=== PATIENT | male | born 1970 | race Caucasian/White ===

== ENCOUNTER 2018-09-05 11:32 | Inpatient (IN) | payer MEDICARE, OTHER ==
[2018-09-05] VITALS (9 sets, daily range): BP systolic 126–162; BP diastolic 71–122
[~2018-09-05] VITALS: Ht 172.7 cm; Wt 153.5 kg
[~2018-09-05 11:32] MED LIST: AMLO10TA82 PO; CYCL10TA45 PO; HYDR1CAP2; LEVO750T6 PO; LISI1TAB PO; LOSA100T7 PO; METF500T8 PO; NAPR-243 PO; NFNEB10T PO; OXYC-272 PO
--- OUTSIDE RECORDS SUMMARY | 2018-09-05 11:37 | XMS REPORT | Continuity of Care Document ---
Author Author [facility] Organization [facility] Address Unknown Phone Unavailable Care Team Providers Care Literacy Education Professor Name Role Phone MI NARVAEZ DO PP Insurance Providers Payer Name Policy Number Subscriber Name Relationship [facility] [id number] Bhavin Boudreaux Self / Same As Patient Advance Directives Directive Response Recorded Date Advance Directives N 10/24/12 7:12pm Problems No Known Problems or Medical conditions. Family History History Response Recorded Date/Time Hx Family Cancer Y grandpa, throat 10/24/12 7:12pm Hx Family Breast Cancer N 10/24/12 7:12pm Hx Family Lung Cancer N 10/24/12 7:12pm Hx Family Colorectal Cancer N 10/24/12 7:12pm Hx Family Cardiac Disorders N 10/24/12 7:12pm Allergies, Adverse Reactions, Alerts Allergen Type Severity Reaction Last Updated No Known Drug Allergies 11/21/08 Medications Medication Dose Units Route Sig Qty Days Levofloxacin (Levaquin Po) 1 Each PO DAILY 7 Metformin HCl (Metformin Er 500MG) 500 Mg PO DAILY WITH FOOD Cyclobenzaprine Hcl (Flexeril Tablet) 10 Mg PO TID FOR SPASMS Naproxen (Naprosyn) 500 Mg PO BID Oxycodone Hcl/Acetaminophen (Percocet 10-325 Mg Tablet) 2 Tab PO TID Amlodipine Besylate 10 Mg PO DAILY Losartan Potassium 100 Mg PO DAILY HCTZ/Lisinopril (Lisinopril-Hctz 20-12.5 Mg Tab) 2 Tab PO DAILY Nebivolol Hcl (Bystolic) 10 Mg PO DAILY Acetaminophen/Hydrocodone Bitart (Lorcet Hd 7.5/500) Response Recorded Date/Time Status not known Unknown Results Test Date Result Interp. Ref. Range Acetaminophen Screen November 21, 2008 1:46am NEGATIVE - Activated Partial Thromboplast Time November 21, 2008 12:25am 26 SEC N 24-35 Alanine Aminotransferase (ALT/SGPT) November 21, 2008 12:25am 57 U/L N 30-65 Albumin November 21, 2008 12:25am 4.0 G/DL N 3.4-5.0 Alkaline Phosphatase November 21, 2008 12:25am 122 U/L N 50-136 Aspartate Amino Transf (AST/SGOT) November 21, 2008 12:25am 17 U/L N 15-37 BUN/Creatinine Ratio November 22, 2008 1:42pm 18 - Basophils # (Auto) November 21, 2008 12:25am 0.1 10^3/uL N 0.0-0.1 Basophils (%) (Auto) November 21, 2008 12:25am 1 % N 0-10 Blood Urea Nitrogen November 22, 2008 1:42pm 21 MG/DL H 7-18 Calcium Level November 22, 2008 1:42pm 9.5 MG/DL N 8.5-10.1 Carbon Dioxide Level November 22, 2008 1:42pm 24 MMOL/L N 21-32 Chloride Level November 22, 2008 1:42pm 101 MMOL/L N 101-110 Creatinine November 22, 2008 1:42pm 1.2 MG/DL N 0.6-1.3 Eosinophils # (Auto) November 21, 2008 12:25am 0.4 10^3/uL H 0.0-0.3 Eosinophils (%) (Auto) November 21, 2008 12:25am 5 % N 0-10 Erythrocyte Sedimentation Rate November 22, 2008 1:42pm 2 MM/HR N 0-15 Free Thyroxine November 22, 2008 1:42pm 0.71 NG/DL N 0.59-1.17 Glucose Level November 22, 2008 1:42pm 167 MG/DL H 70-126 Hematocrit November 21, 2008 12:25am 45 % N 40-54 Hemoglobin November 21, 2008 12:25am 15.5 G/DL N 13.3-17.7 Lymphocytes # (Auto) November 21, 2008 12:25am 2.2 X 10^3 N 1.0-4.0 Lymphocytes (%) (Auto) November 21, 2008 12:25am 29 % N 12-44 Mean Corpuscular Hemoglobin November 21, 2008 12:25am 31 PG N 25-34 Mean Corpuscular Hemoglobin Concent November 21, 2008 12:25am 35 G/DL N 32-36 Mean Corpuscular Volume November 21, 2008 12:25am 90 FL N 80-99 Mean Platelet Volume November 21, 2008 12:25am 10.7 FL H 7.4-10.4 Monocytes # (Auto) November 21, 2008 12:25am 0.6 X 10^3 N 0.0-1.0 Monocytes (%) (Auto) November 21, 2008 12:25am 7 % N 0-12 Neutrophils # (Auto) November 21, 2008 12:25am 4.4 X 10^3 N 1.8-7.8 Neutrophils (%) (Auto) November 21, 2008 12:25am 58 % N 42-75 Platelet Count November 21, 2008 12:25am 259 10^3/uL N 130-400 Potassium Level November 22, 2008 1:42pm 4.2 MMOL/L N 3.6-5.0 Prothromb Time International Ratio November 21, 2008 12:25am 0.9 N 0.8-1.4 Prothrombin Time November 21, 2008 12:25am 12.4 SEC N 12.2-14.7 Red Blood Count November 21, 2008 12:25am 4.96 10^6/uL N 4.35-5.85 Red Cell Distribution Width November 21, 2008 12:25am 12.6 % N 10.0-14.5 Sodium Level November 22, 2008 1:42pm 138 MMOL/L N 135-145 Thyroid Stimulating Hormone (TSH) November 22, 2008 1:42pm 0.86 UIU/ML N 0.34-5.60 Total Bilirubin November 21, 2008 12:25am 0.8 MG/DL N 0.0-1.0 Total Protein November 21, 2008 12:25am 7.5 G/DL N 6.4-8.2 Troponin I November 21, 2008 12:20pm < 0.10 MG/ML 0.00-0.10 Ur Tricyclic Antidepressants Screen November 21, 2008 1:46am NEGATIVE - Urine Amphetamines Screen November 21, 2008 1:46am NEGATIVE - Urine Bacteria November 21, 2008 1:46am NEGATIVE - Urine Barbiturates Screen November 21, 2008 1:46am NEGATIVE - Urine Benzodiazepines Screen November 21, 2008 1:46am NEGATIVE - Urine Bilirubin November 21, 2008 1:46am NEGATIVE - Urine Casts November 21, 2008 1:46am NONE - Urine Clarity November 21, 2008 1:46am CLEAR - Urine Cocaine Screen November 21, 2008 1:46am NEGATIVE - Urine Color November 21, 2008 1:46am YELLOW - Urine Crystals November 21, 2008 1:46am NONE - Urine Culture Indicated November 21, 2008 1:46am NO - Urine Glucose (UA) November 21, 2008 1:46am NEGATIVE - Urine Ketones November 21, 2008 1:46am NEGATIVE - Urine Leukocyte Esterase November 21, 2008 1:46am NEGATIVE - Urine Methamphetamines Screen November 21, 2008 1:46am NEGATIVE - Urine Mucus November 21, 2008 1:46am LARGE H - Urine Nitrite November 21, 2008 1:46am NEGATIVE - Urine Opiates Screen November 21, 2008 1:46am NEGATIVE - Urine Phencyclidine Screen November 21, 2008 1:46am NEGATIVE - Urine Protein November 21, 2008 1:46am NEGATIVE - Urine RBC November 21, 2008 1:46am NONE /HPF - Urine Specific [place] November 21, 2008 1:46am 1.030 H - Urine Squamous Epithelial Cells November 21, 2008 1:46am RARE - Urine Urobilinogen November 21, 2008 1:46am NORMAL MG/DL - Urine WBC November 21, 2008 1:46am 0-2 /HPF - Urine pH November 21, 2008 1:46am 5.0 - White Blood Count November 21, 2008 12:25am 7.7 10^3/uL N 4.3-11.0 Estimat Glomerular Filtration Rate November 21, 2008 12:25am > 60 - Urine Methadone Screen November 21, 2008 1:46am NEGATIVE - Creatine Kinase November 21, 2008 12:20pm 44 mg/dl N 21-170 Urine Cannabinoids Screen November 21, 2008 1:46am NEGATIVE - Cardiac Panel Pathologist Review November 21, 2008 12:25am SEE CARDIAC PATH REV - Urine RBC (Auto) November 21, 2008 1:46am NEGATIVE - Encounters Encounter Location Date/Time Discharged Inpatient [facility] 10/24/12 5:42pm
--- OUTSIDE RECORDS SUMMARY | 2018-09-05 11:37 | XMS REPORT ---
Author Author CALEB WOLF Organization [facility] Address [address] [place] [address] Care Team Providers Care State Auditor Name Role Phone CALEB WOLF Unavailable PROBLEMS Type Condition ICD9-CM Code [id number] Code Onset Dates Condition Status SNOMED Code Problem Primary hypertension I10 Active [id number] ALLERGIES No Information ENCOUNTERS Encounter Location Date Diagnosis [facility] [id number], [place] [address] Jan, [facility] [id number], [place] [address] Oct, Primary hypertension I10 ; Right hip pain M25.551 and BMI 50.0-59.9, adult Z68.43 IMMUNIZATIONS No Known Immunizations SOCIAL HISTORY Never Assessed REASON FOR VISIT Blood Pressure-SHIRLEY milian PLAN OF CARE VITAL SIGNS Height 68 in 2018-01-27 Weight 327.0 lbs 2018-01-27 BMI 49.71 kg/m2 2018-01-27 Blood pressure systolic 200 mmHg 2018-01-27 Blood pressure diastolic 130 mmHg 2018-01-27 MEDICATIONS Unknown Medications RESULTS No Results PROCEDURES No Known procedures INSTRUCTIONS MEDICATIONS ADMINISTERED No Known Medications MEDICAL (GENERAL) HISTORY Type Description Date Surgical History 2 microdiscectomy - [place] Hospitalization History [facility] - Mini stroke 2009
--- OUTSIDE RECORDS SUMMARY | 2018-09-05 11:37 | XMS REPORT ---
Author Author CALEB WOLF Organization [facility] Address [address] [place] [address] Care Team Providers Care Rate And Cost Analyst Name Role Phone CALEB WOLF Unavailable PROBLEMS Type Condition ICD9-CM Code [id number] Code Onset Dates Condition Status SNOMED Code Problem Primary hypertension I10 Active [id number] ALLERGIES No Known Allergies ENCOUNTERS Encounter Location Date Diagnosis [facility] [address] [facility] [id number] [address] Oct, Primary hypertension I10 ; Right hip pain M25.551 and BMI 50.0-59.9, adult Z68.43 IMMUNIZATIONS No Known Immunizations SOCIAL HISTORY Never Assessed REASON FOR VISIT Blood pressure, PT reports he ran out of his BP medicaiton a week ago and has th e occasional headache. PT notes he previously used to monitor his BP -Jesus Gallagher PLAN OF CARE Activity Details Follow Up 6 Months Reason:BP follow up VITAL SIGNS Height 68 in 2017-11-23 Weight 333.7 lbs 2017-11-23 Temperature 98.2 degrees Fahrenheit 2017-11-23 Heart Rate 110 bpm 2017-11-23 Respiratory Rate 20 2017-11-23 Oximetry 97 % 2017-11-23 BMI 50.73 kg/m2 2017-11-23 Blood pressure systolic 160 mmHg 2017-11-23 Blood pressure diastolic 100 mmHg 2017-11-23 MEDICATIONS Medication Instructions Dosage Frequency Start Date End Date Duration Status Lisinopril-Hydrochlorothiazide 20-12.5 MG Orally Once a day 1 tablet 24h Oct, 30 day(s) Active Lisinopril Orally Once a day 24h Active RESULTS No Results PROCEDURES Procedure Date Ordered Result Body Site [facility] VISIT NEW PATIENT Nov 23, 2017 INSTRUCTIONS MEDICATIONS ADMINISTERED No Known Medications MEDICAL (GENERAL) HISTORY Type Description Date Surgical History 2 microdiscectomy - [place] Hospitalization History [facility] - Mini stroke 2009
--- OUTSIDE RECORDS SUMMARY | 2018-09-05 11:37 | XMS REPORT | Continuity of Care Document ---
Author Organization Unknown Address Unknown Allergies There is no data. Medications There is no data. Problems There is no data. Procedures There is no data. Results Test Result Range LIPID PANEL - 07/26/18 14:45 CHOLESTEROL, TOTAL 221 mg/dL <200 HDL CHOLESTEROL 51 mg/dL >40 TRIGLYCERIDES 162 mg/dL <150 LDL-CHOLESTEROL 140 mg/dL (calc) NRG CHOL/HDLC RATIO 4.3 (calc) <5.0 NON HDL CHOLESTEROL 170 mg/dL (calc) <130 CMP - 07/26/18 14:45 GLUCOSE 150 mg/dL 65-99 UREA NITROGEN (BUN) 25 mg/dL 7-25 CREATININE 1.00 mg/dL 0.60-1.35 eGFR NON-AFR. KOSOVAN 89 mL/min/1.73m2 > OR=60 eGFR 103 mL/min/1.73m2 > OR=60 BUN/CREATININE RATIO NOT APPLICABLE (calc) 6-22 SODIUM 138 mmol/L 135-146 POTASSIUM 4.2 mmol/L 3.5-5.3 CHLORIDE 105 mmol/L 98-110 CARBON DIOXIDE 25 mmol/L 20-32 CALCIUM 9.3 mg/dL 8.6-10.3 PROTEIN, TOTAL 6.9 g/dL 6.1-8.1 ALBUMIN 4.1 g/dL 3.6-5.1 GLOBULIN 2.8 g/dL (calc) 1.9-3.7 ALBUMIN/GLOBULIN RATIO 1.5 (calc) 1.0-2.5 BILIRUBIN, TOTAL 0.9 mg/dL 0.2-1.2 ALKALINE PHOSPHATASE 92 U/L 40-115 AST 16 U/L 10-40 ALT 20 U/L 9-46 CBC - 07/26/18 14:45 WHITE BLOOD CELL COUNT 7.5 Thousand/uL 3.8-10.8 RED BLOOD CELL COUNT 5.26 Million/uL 4.20-5.80 HEMOGLOBIN 15.9 g/dL 13.2-17.1 HEMATOCRIT 49.3 % 38.5-50.0 MCV 93.7 fL 80.0-100.0 MCH 30.2 pg 27.0-33.0 MCHC 32.3 g/dL 32.0-36.0 RDW 13.7 % 11.0-15.0 PLATELET COUNT 237 Thousand/uL 140-400 MPV 10.9 fL 7.5-12.5 ABSOLUTE NEUTROPHILS 5288 cells/uL [id number] ABSOLUTE LYMPHOCYTES 1365 cells/uL 850-3900 ABSOLUTE MONOCYTES 488 cells/uL 200-950 ABSOLUTE EOSINOPHILS 308 cells/uL 15-500 ABSOLUTE BASOPHILS 53 cells/uL 0-200 NEUTROPHILS 70.5 % NRG LYMPHOCYTES 18.2 % NRG MONOCYTES 6.5 % NRG EOSINOPHILS 4.1 % NRG BASOPHILS 0.7 % NRG Encounters ACCT No. Visit Date/Time Discharge Status Pt. Type Provider Facility Loc./Unit Complaint [id number] 08/25/2018 13:00:00 08/25/2018 23:59:59 [id number] 07/26/2018 14:20:00 Document Registration [id number] 10/24/2012 17:42:00 10/25/2012 19:25:00 DIS Inpatient
[2018-09-05 12:09] LABS: BASOPHILS % (AUTO) 0 % (0-10); EOSINOPHILS # (AUTO) 0.3 10^3/uL (0.0-0.3); EOSINOPHILS % (AUTO) 4 % (0-10); HEMATOCRIT 46 % (40-54); HEMOGLOBIN 15.8 G/DL (13.3-17.7); LYMPHOCYTES # (AUTO) 1.5 X 10^3 (1.0-4.0); LYMPHOCYTES % (AUTO) 19 % (12-44); MEAN CORPUSCULAR HEMOGLOBIN 31 PG (25-34); MEAN CORPUSCULAR HGB CONC 34 G/DL (32-36); MEAN CORPUSCULAR VOLUME 91 FL (80-99); MEAN PLATELET VOLUME 11.5 FL (7.4-10.4); MONOCYTES # (AUTO) 0.7 X 10^3 (0.0-1.0); MONOCYTES % (AUTO) 9 % (0-12); NEUTROPHILS # (AUTO) 5.3 X 10^3 (1.8-7.8); NEUTROPHILS % (AUTO) 68 % (42-75); PLATELET COUNT 237 10^3/uL (130-400); RED CELL DISTRIBUTION WIDTH 13.3 % (10.0-14.5); WHITE BLOOD COUNT 7.8 10^3/uL (4.3-11.0)
--- NOTE | 2018-09-05 12:11 | ED Neurological Problem ---
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 He was noted to have high blood pressure was referred to his primary care provider. He arrived at their office and they advised he should come to the emergency room. He states that 45 minutes ago he developed some tingling in the right arm beginning at the shoulder and extending all the way down to each of the fingertips. The tingling sensation has resolved and the upper arm but persists from the elbow distally at this time. Denies any other symptoms. Blood pressure is noted to be 202/125. states that he's been seeing his primary care provider for the past few weeks several times in an attempt to get his blood pressure under control with lisinopril and Bystolic. PCP Dr Tanisha Lacey Timing/Duration: 1 hour Severity: moderate Associated Symptoms: No confusion, No fatigue, No fever/chills, No insomnia, No loss of consciousness, No muscle spasms, No nausea/vomiting, No numbness in legs/feet; paresthesia; No ringing in ears, No seizures, No sleepy, No slurred speech, No tingling in legs/feet, No trouble walking, No vision changes, No weakness Allergies and Home Medications Allergies Coded Allergies: No Known Drug Allergies (Unverified , 11/21/08) Home Medications Lisinopril/Hydrochlorothiazide 1 Each Tablet, 1 TAB PO DAILY, (Reported) Metformin HCl 500 Mg Tab.er.24h, 500 MG PO DAILY, (Reported) Multivitamin 1 Each Tablet, 1 TAB PO DAILY, (Reported) Nebivolol HCl 5 Mg Tablet, 5 MG PO DAILY, (Reported) LAST FILLED #30 4-30-19 Ashton-3/Dha/Epa/Fish Oil 1 Each Capsule, 1,000 MG PO DAILY, (Reported) Rosuvastatin Calcium 20 Mg Tablet, 20 MG PO DAILY, (Reported) Patient Home Medication List Home Medication List Reviewed: Yes Review of Systems Review of Systems Constitutional: see HPI Eyes: No Symptoms Reported Ears, Nose, Mouth, Throat: no symptoms reported Respiratory: no symptoms reported Cardiovascular: no symptoms reported Genitourinary: no symptoms reported Musculoskeletal: no symptoms reported Skin: no symptoms reported Psychiatric/Neurological: See HPI, Tingling Endocrine: No Symptoms Reported Hematologic/Lymphatic: No Symptoms Reported Past [id number] Hx Patient Social History Recent Foreign Travel: No Contact w/Someone Who Travel: No Past Medical History Reproductive Disorders: No Physical Exam Vital Signs Vital Signs - First Documented 09/05/18 11:45 Temp 97.6 Pulse 75 Resp 18 B/P (MAP) 203/134 (157) Pulse Ox 95 Capillary Refill : Height, Weight, BMI Height: '" Weight: lbs. oz. kg; BMI Method: General Appearance: WD/WN, no apparent distress, obese HEENT: PERRL/EOMI, normal ENT inspection Neck: non-tender, full range of motion Respiratory: lungs clear, normal breath sounds, no respiratory distress, no accessory muscle use Gastrointestinal: normal bowel sounds, soft Extremities: normal range of motion, non-tender Neurologic/Psychiatric: alert, normal mood/affect, oriented x 3 Crainal Nerves: normal hearing, normal speech, PERRL Coordination/Gait: normal finger to nose, normal gait Motor/Sensory: no motor deficit, no sensory deficit Skin: normal color, warm/dry 1211-reports tingling in the right arm, however I cannot score him anything for sensory loss because he has intact sensation and states that touching him with the pain is just as sharp on the right side as it is on the left side, there is just an additional sensation of tingling. Thus, his NIH is 0 Stroke Onset of Symptoms Date of Onset of Symptoms: Sep 05, 2018 Time of Symptom Onset: 11:30 Onset of Symptoms: Yes Symptoms onset unknown: Yes NIH Stroke Scale Assessment Select: Initial Level of Consciousness: 0=Alert (0), Level of Consciousness- Questions: 0=Answers both month/age (0), LOC Commands: 0=Performs both tasks (0), Gaze: Normal (0), Visual Pichardo: 0=No visual loss (0), Facial Movement (Facial Paresis): 0=Normal symmetrical mnt (0), Motor Function-Arms Right: 0=No drift (0), Motor Function-Arms Left: 0=No drift (0), Motor Function-Legs Right: 0=No drift (0), Motor Function-Legs Left: 0=No drift (0), Limb Ataxia: 0=Absent (0), Sensory: 0=Normal:no loss (0), Best Language: 0=No aphasia (0), Dysarthria: 0=Normal (0), Extinction & Inattention: 0=No abnormality (0), Total: 0 Stroke Thrombolytic Exclusion Age 18 or Over: No Acute intenal hemorrhage: No History of CVA: No Uncontrolled Coagulation Defec: No Intracranial Hemorrhage: No Severe Hypertension: No GI or Bleed: No Subarachnoid Hemorrhage: No Intracranial Neoplasm/Aneurysm: No Oral Anticoagulants: No Surgery or Trauma: No Puncture of Non-Compressible V: No Recent CPR: No Diabetic Hemorrhagic Retinopat: No Organ Biopsy: No Recent Obstetric Delivery: No Glucose: No Significant Hepatic Dysfunctio: No NIH Stoke Scale >22: No Bacterial Endocarditis: No Pericarditis: No Improving Symptoms: No Platelets: No TPA Contraindication: No Progress/Results/Core Measures Results/Orders Lab Results Laboratory Tests Test 09/05/18 11:57 Range/Units White Blood Count 7.8 4.3-11.0 10^3/uL Red Blood Count 5.09 4.35-5.85 10^6/uL Hemoglobin 15.8 13.3-17.7 G/DL Hematocrit 46 40-54 % Mean Corpuscular Volume 91 80-99 FL Mean Corpuscular Hemoglobin 31 25-34 PG Mean Corpuscular Hemoglobin Concent 34 32-36 G/DL Red Cell Distribution Width 13.3 10.0-14.5 % Platelet Count 237 130-400 10^3/uL Mean Platelet Volume 11.5 H 7.4-10.4 FL Neutrophils (%) (Auto) 68 42-75 % Lymphocytes (%) (Auto) 19 12-44 % Monocytes (%) (Auto) 9 0-12 % Eosinophils (%) (Auto) 4 0-10 % Basophils (%) (Auto) 0 0-10 % Neutrophils # (Auto) 5.3 1.8-7.8 X 10^3 Lymphocytes # (Auto) 1.5 1.0-4.0 X 10^3 Monocytes # (Auto) 0.7 0.0-1.0 X 10^3 Eosinophils # (Auto) 0.3 0.0-0.3 10^3/uL Basophils # (Auto) 0.0 0.0-0.1 10^3/uL Prothrombin Time 12.6 12.2-14.7 SEC INR Comment 0.9 0.8-1.4 Activated Partial Thromboplast Time 29 24-35 SEC D-Dimer 0.43 0.00-0.49 UG/ML Sodium Level 142 135-145 MMOL/L Potassium Level 4.3 3.6-5.0 MMOL/L Chloride Level 109 H 98-107 MMOL/L Carbon Dioxide Level 24 21-32 MMOL/L Anion Gap 9 5-14 MMOL/L Blood Urea Nitrogen 16 7-18 MG/DL Creatinine 1.04 0.60-1.30 MG/DL Estimat Glomerular Filtration Rate > 60 BUN/Creatinine Ratio 15 Glucose Level 138 H 70-105 MG/DL Calcium Level 9.7 8.5-10.1 MG/DL Corrected Calcium 9.6 8.5-10.1 MG/DL Total Bilirubin 0.9 0.1-1.0 MG/DL Aspartate Amino Transf (AST/SGOT) 18 5-34 U/L Alanine Aminotransferase (ALT/SGPT) 32 0-55 U/L Alkaline Phosphatase 84 40-136 U/L Troponin I 0.066 H <0.028 NG/ML Total Protein 7.2 6.4-8.2 GM/DL Albumin 4.1 3.2-4.5 GM/DL My Orders Orders - ROSS CHANDRA APRN Labetalol Injection (Normodyne Injection (09/05/18 12:15) Ct Angio Head/Neck (09/05/18 12:18) Labetalol Injection (Normodyne Injection (09/05/18 13:30) Ns (Ivpb) (Sodium C... W/Nicardipine Iv (09/05/18 13:45) Clonidine Tablet (Catapres Tablet) (09/05/18 15:15) Echo W Doppler/Color Flow (09/05/18 15:07) Medications Given in ED Current Medications Medications Dose Ordered Sig/Mary Route Start Time Stop Time Status Last Admin Dose Admin Labetalol HCl 10 mg ONCE ONCE IV 09/05/18 13:30 09/05/18 13:31 DC 09/05/18 13:25 10 MG Labetalol HCl 20 mg ONCE ONCE IV 09/05/18 12:15 09/05/18 12:16 DC 09/05/18 12:18 20 MG Vital Signs/I&O 09/05/18 11:45 Temp 97.6 Pulse 75 Resp 18 B/P (MAP) 203/134 (157) Pulse Ox 95 Departure Communication (Admissions) Time/Spoke to Admitting Phy: 15:[address] Casas. We will admit, consult Dr. Angulo. Time/Spoke to Consulting Phy: 15:[address] Angulo. Would like 2-D echocardiogram 1433-Spoke with radiology. He would recommend MRI and then potentially digital subtraction cerebral angiography. Our MRI table weight limit is 325 and this gentleman weighs 337. He would benefit from transfer to a facility that has a larger weight limit on the MRI machine as well as neurology. I spoke with the transfer center at [facility] and they will call back. His heart rate currently is 76 sinus without ectopy, blood pressure 205/140 on 5 mg of Cardene. We will increase this dose to 7.5 mg/hr now. [id number]-[facility] neurologist hydroelectric station operator chief called back and states that he has reviewed the images and doesn't see any sign of vasculitis, believes this is artifact, also states that patient doesn't have symptoms such as malaise fatigue fevers chills or weight loss that would suggest vasculitis.. He would be happy to accept the patient in transfer but believes that the patient can be kept here, get blood pressure under control and have a follow-up MRI in the upcoming weeks. NIH remains 0, the sensation of tingling to the right arm has remained absent for about one hour now. Impression Primary Impression: Abnormal CT of brain Additional Impressions: Abnormal computed tomography angiography (CTA) Hypertensive encephalopathy Disposition: ADMITTED INPATIENT Condition: Improved Admissions Decision to Admit Reason: Admit from ER (General) Decision to Admit/Date: Sep 05, 2018 Time/Decision to Admit Time: 17:59 Departure-Patient Inst. Referrals: NO,LOCAL PHYSICIAN (PCP) Primary Care Physician PHILOMENA LACEY (Family) Primary Care Physician ROSS CHANDRA APRN Sep 05, 2018 12:11
[2018-09-05] MEDS ORDERED: LABETALOL HCL 20 MG/4 ML VIAL IV ONE ×2 (12:15→13:30)
[2018-09-05 12:23] LABS: INR 0.9 (0.8-1.4); PROTHROMBIN TIME PATIENT 12.6 SEC (12.2-14.7)
--- NOTE | 2018-09-05 12:25 | Diagnostic Imaging Report ---
INDICATION: Hypertension, altered mental status. Portable chest at 12:12 p.m. FINDINGS: Heart size and pulmonary vascularity are normal. Lungs are clear. There are no effusions or pneumothoraces. IMPRESSION: Negative chest. Dictated by: Dictated on workstation # [id number]
[2018-09-05 12:26] LABS: FIBRIN DEGRADATION PRODUCTS 0.43 UG/ML (0.00-0.49)
[2018-09-05 12:27] LABS: ALANINE AMINOTRANSFERASE 32 U/L (0-55); ALBUMIN 4.1 GM/DL (3.2-4.5); ALKALINE PHOSPHATASE 84 U/L (40-136); BILIRUBIN,TOTAL 0.9 MG/DL (0.1-1.0); BUN/CREATININE RATIO 15; CALCIUM 9.7 MG/DL (8.5-10.1); CARBON DIOXIDE 24 MMOL/L (21-32); CHLORIDE 109 MMOL/L (98-107); CREATININE SERUM 1.04 MG/DL (0.60-1.30); GFR ESTIMATED > 60; GLUCOSE 138 MG/DL (70-105); POTASSIUM 4.3 MMOL/L (3.6-5.0); SODIUM 142 MMOL/L (135-145); TOTAL PROTEIN 7.2 GM/DL (6.4-8.2)
--- NOTE | 2018-09-05 12:28 | Diagnostic Imaging Report ---
PROCEDURE: CT head wo r/o stroke. TECHNIQUE: Multiple contiguous axial images were obtained through the brain without the use of intravenous contrast. Auto Exposure Controls were utilized during the CT exam to meet ALARA standards for radiation dose reduction. INDICATION: Right arm tingling. Hypertension. COMPARISON: 11/22/2008 FINDINGS: The ventricles and cortical sulci are diffusely prominent, compatible with age-related volume loss. There are confluent areas of abnormal, low attenuation in the periventricular white matter. This is consistent with small vessel ischemic changes. Overall appearance has markedly progressed when compared to 11/22/2008 and is much greater than expected given patient's age. There is no midline shift or mass-effect. No acute intra-axial hemorrhage is seen. There are no abnormal areas of increased or decreased density to suggest acute hemorrhage or edema. No extra-axial masses or collections are present. The bony calvarium is intact. The visualized paranasal sinuses show scattered mild mucosal thickening. The mastoid air cells are clear. IMPRESSION: 1. No acute intracranial abnormality. No CT evidence of mass, acute infarct or intracranial hemorrhage. 2. Significant interval progression of chronic small vessel ischemic changes in the deep white matter. Again, these changes are much greater than expected given patient's age. Correlation for underlying risk factors is recommended. Results discussed with Diomedes in the [place] [facility] by Dr. Bryan at 1218 hrs on 09/05/2018. Dictated by: Dictated on workstation # [id number]
[2018-09-05] MEDS ORDERED: niCARdipine IV 50 MG in NS (IVPB) 230 ML IV SCH (13:45)
--- NOTE | 2018-09-05 13:56 | Diagnostic Imaging Report ---
CLINICAL INDICATION: Follow up stroke. EXAMS: 1: Head CT with IV contrast. Auto Exposure Controls were utilized during the CT exam to meet ALARA standards for radiation dose reduction. 2: CT angiogram of the head and neck performed with 100 cc of Omnipaque 350 IV contrast. Sagittal and coronal MIP reformations were created for better visualization of vascular anatomy. COMPARISON: Head CT without contrast dated 09/05/2018. Head CT without and with contrast dated 11/22/2008. FINDINGS: Head CT: Compared to the most recent CT scan, there is no significant change to the diffuse focal, patchy, and confluent areas of low-attenuation white matter changes throughout both cerebral hemispheres. There is a stable prominent area in the posterior left bowens radiata. These findings have progressed compared to the old comparison dated 11/22/2008. There is no significant IV contrast enhancement. There is no hydrocephalus, brain herniation, or midline shift. The brain parenchymal volume appears appropriate for patient's age. Basal cisterns are unremarkable. The extracranial soft tissue, skull, and orbits are unremarkable. There is mild mucosal thickening involving both maxillary sinuses. Temporal bone structures show no significant abnormality. CT angiogram: There is significant streak artifact due to patient body habitus greatly limiting evaluation of the aortic arch and proximal great vessels. The mid and proximal portions of the cervical vertebral arteries are greatly obscured. The areas of severe streak artifact make the vessels uninterpretable. The visualized portions of the aortic arch, proximal great vessels, and neck arterial vascular structures are grossly patent. Dominant left cervical vertebral artery is seen, and small-caliber right cervical vertebral artery is noted. There is limited contrast opacification of smaller vessels of the [place]. There is no large vessel occlusion or aneurysm seen. There is artifact seen within the petrous and cavernous portions of the carotid arteries and intradural vertebral arteries and basilar artery. There is the appearance of diffuse vascular irregularity involving most of the [place] vascular structures. Unknown if this is due to vasculitis or artifactual. There is also slight heterogeneity involving the dural venous sinus, which may be related to patient body habitus and limited contrast opacification. The neck soft tissue structures are unremarkable. Visualized upper lung otero show atelectasis. Cervical spine degenerative spurs are noted. The mid to distal cervical spine is uninterpretable due to streak artifact. IMPRESSION: 1: Stable CT scan of the brain with no definite CT evidence of interval acute cerebral infarction, intracranial hemorrhage, or mass seen. Given the diffuse low attenuation changes throughout the brain parenchyma which can obscure more subtle findings, if there is clinical concern for acute cerebral infarction, MRI of the brain would better evaluate. 2: Severely limited CT angiogram of the [place] and neck, as described above. There is no large vascular occlusion or aneurysm seen. 3: There is diffuse vascular irregularity involving the [place] vascular structures. Unknown if this is due to artifact or vasculitis. Digital subtraction cerebral angiogram may be helpful. Results of this report were discussed with Diomedes Lucio via the telephone on 09/05/2018 at 1345 hours. Dictated by: Dictated on workstation # [id number]
[2018-09-05] MEDS ORDERED: cloNIDine 0.1 MG (CATAPRES) TAB PO ONE (15:15)
[2018-09-05 15:30] LABS: BILIRUBIN,URINE NEGATIVE (NEGATIVE); CLARITY,URINE CLEAR; COLOR,URINE YELLOW; GLUCOSE, URINE (UA) NEGATIVE (NEGATIVE); KETONES,URINE NEGATIVE (NEGATIVE); LEUKOCYTE ESTERASE ,URINE NEGATIVE (NEGATIVE); NITRITE,URINE NEGATIVE (NEGATIVE); PH,URINE 7 (5-9); PROTEIN,URINE 1+ (NEGATIVE); UROBILINOGEN,URINE NORMAL (NORMAL)
--- OUTSIDE RECORDS SUMMARY | 2018-09-05 15:37 | XMS REPORT | Continuity of Care Document ---
[...] 7-25 CREATININE 1.00 mg/dL 0.60-1.35 eGFR NON-AFR. CZECH 89 mL/min/1.73m2 > OR=60 eGFR 103 mL/min/1.73m2 [...] 10.9 fL 7.5-12.5 ABSOLUTE NEUTROPHILS 5288 cells/uL 7923-5353 ABSOLUTE LYMPHOCYTES 1365 cells/uL 850-3900 ABSOLUTE MONOCYTES 488 cells/uL 200-950 ABSOLUTE EOSINOPHILS 308 cells/uL 15-500 ABSOLUTE BASOPHILS 53 cells/uL 0-200 NEUTROPHILS 70.5 % NRG LYMPHOCYTES 18.2 % NRG MONOCYTES 6.5 % NRG EOSINOPHILS 4.1 % NRG BASOPHILS 0.7 % NRG Encounters ACCT No. Visit Date/Time Discharge Status Pt. Type Provider Facility Loc./Unit Complaint [id number] 08/25/2018 13:00:00 08/25/2018 23:59:59 [id number] 07/26/2018 14:20:00 Document Registration [id number] 10/24/2012 17:42:00 10/25/2012 19:25:00 DIS Inpatient
[2018-09-05] MEDS ORDERED: OMEP40CA36 PO (15:42)
[2018-09-05] MEDS ORDERED: ROSU20TA2 PO (15:42)
[2018-09-05] MEDS ORDERED: LISI1TAB8 PO (15:42)
[2018-09-05] MEDS ORDERED: NEBI5TAB8 PO (15:42)
[2018-09-05] MEDS ORDERED: METF500T8 PO (15:42)
[2018-09-05 15:55] LABS: AMPHETAMINE SCREEN, URINE NEGATIVE (NEGATIVE); BARBITURATE SCREEN URINE NEGATIVE (NEGATIVE); BENZODIAZEPINES SCREEN URINE NEGATIVE (NEGATIVE); CANNABINOID SCREEN, URINE NEGATIVE (NEGATIVE); COCAINE SCREEN URINE NEGATIVE (NEGATIVE); METHADONE STAT NEGATIVE (NEGATIVE); METHAMPHETAMINE SCREEN URINE S NEGATIVE (NEGATIVE); OPIATE SCREEN URINE NEGATIVE (NEGATIVE); OXYCODONE STAT NEGATIVE (NEGATIVE); PROPOXYPHENE STAT NEGATIVE (NEGATIVE); TRICYCLIC ANTIDEPRESSANTS SCRE NEGATIVE (NEGATIVE)
[2018-09-05] MEDS ORDERED: ASPI325T32 PO (15:55)
[2018-09-05] MEDS ORDERED: OMEG-160 PO (15:55)
[2018-09-05] MEDS ORDERED: MULT1TAB69 PO (15:55)
[2018-09-05 15:56] LABS: BACTERIA,URINE TRACE /HPF
[2018-09-05] MEDS ORDERED: CATHETER FLUSH 10 ML SYR IV PRN (16:45)
[2018-09-05] MEDS ORDERED: niCARdipine 50 MG/NS 250 ML IV DRIP IV SCH ×2 (16:45)
[2018-09-05] MEDS ORDERED: cloNIDine 0.1 MG (CATAPRES) TAB ONE (17:18)
--- NOTE | 2018-09-05 17:25 | Consultation-Cardiology ---
HPI-Cardiology Cardiology Consultation Date of Consultation 09/05/18 Date of Admission Time Seen by Provider: 17:21 Indication: hypertensive emergency HPI 47 years old gentleman with history of diabetes mellitus, hypertension hyperlipidemia. Was in his usual state of health, scheduled for occupational health evaluation prior to starting a new job noted to be severely hypertensive. Patient had some fried food this morning for breakfast and had a steak last night for dinner. He was sent to his primary care physician's office where he was noted to be severely hypertensive and was having tingling in his right arm. Sent to the emergency room, CTA of the head had some abnormality, was overall nondiagnostic. He was started on Cardene drip and reported improvement in his blood pressure, he is currently asymptomatic, denied any chest pain or shortness of breath. Home Medications & Allergies Allergies: Coded Allergies: No Known Drug Allergies (Unverified , 11/21/08) Home Medication List Reviewed: Yes QEH-Prytgn-Yfuvuv Hx Patient Social History Marital Status: Employed/Student: employed Alcohol Use: Occasionally Uses Recreational Drug Use: No Smoking Status: Never a Smoker Recent Foreign Travel: No Recent Infectious Disease Expo: No Past Medical History discussed below Family Medical History Family Medical Hx noncontributory Review of Systems-General Review of Systems Constitutional: see HPI, dizziness, malaise, weight gain EENTM: see HPI, no symptoms reported Respiratory: see HPI; No cough, No dyspnea on exertion, No hemoptysis, No orthopnea, No phlegm, No short of breath, No stridor, No wheezing, No other Cardiovascular: see HPI; No chest pain, No edema, No Hx of Intervention, No palpitations, No syncope, No vascular heart diseas, No other Gastrointestinal: no symptoms reported, see HPI Genitourinary: no symptoms reported Musculoskeletal: no symptoms reported Skin: no symptoms reported Psychiatric/Neurological: No Symptoms Reported, See HPI Reviewed Test Results Reviewed Test Results Lab Laboratory Tests Test 09/05/18 11:57 09/05/18 15:11 Range/Units White Blood Count 7.8 4.3-11.0 10^3/uL Red Blood Count 5.09 4.35-5.85 10^6/uL Hemoglobin 15.8 13.3-17.7 G/DL Hematocrit 46 40-54 % Mean Corpuscular Volume 91 80-99 FL Mean Corpuscular Hemoglobin 31 25-34 PG Mean Corpuscular Hemoglobin Concent 34 32-36 G/DL Red Cell Distribution Width 13.3 10.0-14.5 % Platelet Count 237 130-400 10^3/uL Mean Platelet Volume 11.5 H 7.4-10.4 FL Neutrophils (%) (Auto) 68 42-75 % Lymphocytes (%) (Auto) 19 12-44 % Monocytes (%) (Auto) 9 0-12 % Eosinophils (%) (Auto) 4 0-10 % Basophils (%) (Auto) 0 0-10 % Neutrophils # (Auto) 5.3 1.8-7.8 X 10^3 Lymphocytes # (Auto) 1.5 1.0-4.0 X 10^3 Monocytes # (Auto) 0.7 0.0-1.0 X 10^3 Eosinophils # (Auto) 0.3 0.0-0.3 10^3/uL Basophils # (Auto) 0.0 0.0-0.1 10^3/uL Prothrombin Time 12.6 12.2-14.7 SEC INR Comment 0.9 0.8-1.4 Activated Partial Thromboplast Time 29 24-35 SEC D-Dimer 0.43 0.00-0.49 UG/ML Sodium Level 142 135-145 MMOL/L Potassium Level 4.3 3.6-5.0 MMOL/L Chloride Level 109 H 98-107 MMOL/L Carbon Dioxide Level 24 21-32 MMOL/L Anion Gap 9 5-14 MMOL/L Blood Urea Nitrogen 16 7-18 MG/DL Creatinine 1.04 0.60-1.30 MG/DL Estimat Glomerular Filtration Rate > 60 BUN/Creatinine Ratio 15 Glucose Level 138 H 70-105 MG/DL Calcium Level 9.7 8.5-10.1 MG/DL Corrected Calcium 9.6 8.5-10.1 MG/DL Total Bilirubin 0.9 0.1-1.0 MG/DL Aspartate Amino Transf (AST/SGOT) 18 5-34 U/L Alanine Aminotransferase (ALT/SGPT) 32 0-55 U/L Alkaline Phosphatase 84 40-136 U/L Troponin I 0.066 H <0.028 NG/ML Total Protein 7.2 6.4-8.2 GM/DL Albumin 4.1 3.2-4.5 GM/DL Urine Color YELLOW Urine Clarity CLEAR Urine pH 7 5-9 Urine Specific [place] 1.010 L 1.016-1.022 Urine Protein 1+ H NEGATIVE Urine Glucose (UA) NEGATIVE NEGATIVE Urine Ketones NEGATIVE NEGATIVE Urine Nitrite NEGATIVE NEGATIVE Urine Bilirubin NEGATIVE NEGATIVE Urine Urobilinogen NORMAL NORMAL MG/DL Urine Leukocyte Esterase NEGATIVE NEGATIVE Urine RBC (Auto) NEGATIVE NEGATIVE Urine RBC NONE /HPF Urine WBC NONE /HPF Urine Crystals NONE /LPF Urine Bacteria TRACE /HPF Urine Casts NONE /LPF Urine Mucus NEGATIVE /LPF Urine Culture Indicated NO Urine Opiates Screen NEGATIVE NEGATIVE Urine Oxycodone Screen NEGATIVE NEGATIVE Urine Methadone Screen NEGATIVE NEGATIVE Urine Propoxyphene Screen NEGATIVE NEGATIVE Urine Barbiturates Screen NEGATIVE NEGATIVE Ur Tricyclic Antidepressants Screen NEGATIVE NEGATIVE Urine Phencyclidine Screen NEGATIVE NEGATIVE Urine Amphetamines Screen NEGATIVE NEGATIVE Urine Methamphetamines Screen NEGATIVE NEGATIVE Urine Benzodiazepines Screen NEGATIVE NEGATIVE Urine Cocaine Screen NEGATIVE NEGATIVE Urine Cannabinoids Screen NEGATIVE NEGATIVE Physical Exam Physical Exam Vital Signs Vital Signs - First Documented 09/05/18 09/05/18 11:45 15:42 Temp 97.6 Pulse 75 Resp 18 B/P (MAP) 203/134 (157) Pulse Ox 95 O2 Delivery Room Air Capillary Refill : Less Than 3 Seconds Height, Weight, BMI Height: 5'8.00" Weight: 337lbs. 3.2oz. 152.433068st; 46.07 BMI Method:Stated General Appearance: No Apparent Distress, WD/WN Eyes: Bilateral Eye Normal Inspection, Bilateral Eye PERRL, Bilateral Eye EOMI HEENT: PERRL/EOMI, TMs Normal, Normal ENT Inspection, Pharynx Normal, Moist Mucous Membranes Neck: Full Range of Motion, Normal Inspection, Non Tender, Supple, Carotid Bruit Respiratory: Chest Non Tender, Normal Breath Sounds, No Accessory Muscle Use, No Respiratory Distress Cardiovascular: Regular Rate, Rhythm, No Edema, No Gallop, No JVD, No Murmur, Normal Peripheral Pulses Gastrointestinal: Normal Bowel Sounds, No Organomegaly, No Pulsatile Mass, Non Tender, Soft Back: Normal Inspection, No CVA Tenderness, No Vertebral Tenderness Extremity: Normal Capillary Refill, Normal Inspection, Normal Range of Motion, Non Tender, No Calf Tenderness, No Pedal Edema Neurologic/Psychiatric: Alert, Oriented x3, No Motor/Sensory Deficits, Normal Mood/Affect Skin: Normal Color, Warm/Dry Lymphatic: No Adenopathy A/P-Cardiology Admission Diagnosis Hypertensive emergency Hypertensive encephalopathy Hyperlipidemia Diabetes mellitus Obesity Assessment/Plan Hypertensive emergency, started on Cardene drip, educated on diet and limiting salt intake. Restart his home medication including Bystolic, lisinopril HCTZ in addition, I will add clonidine and monitor tolerance and response. I will review 2-D echocardiogram. Hypertensive encephalopathy with numbness and tingling in his right side, CTA was nondiagnostic, blood pressure is better and he is feeling better. Continue to monitor next Hyperlipidemia maintained on Crestor and fish oil. Monitor lipids Diabetes mellitus, followed and managed by primary care physician next Morbid obesity, BMI 51, had a long discussion with the patient about diet, weight loss and exercise, educated about the importance of limiting salt intake, weight loss and avoiding carbohydrate. Clinical Quality Measures Stroke: Date of last known well: Sep 05, 2018 Time of last known well: 11:30 Symptoms onset unknown: Yes GERMAN DANIEL MD Sep 05, 2018 17:25
[2018-09-05] MEDS ORDERED: cloNIDine 0.1 MG (CATAPRES) TAB PO NR (17:30)
[2018-09-05] MEDS: CATHETER FLUSH 10 ML SYR IV SCH (20:45)
[2018-09-05] MEDS: cloNIDine 0.1 MG (CATAPRES) TAB PO SCH (20:45)
[2018-09-06 01:45] VITALS: BP 149/106
[2018-09-06 03:28] VITALS: BP 146/94
[2018-09-06 03:58] LABS: HEMOGLOBIN 15.1 G/DL (13.3-17.7); MEAN PLATELET VOLUME 11.3 FL (7.4-10.4); RED CELL DISTRIBUTION WIDTH 13.2 % (10.0-14.5); WHITE BLOOD COUNT 6.9 10^3/uL (4.3-11.0)
[2018-09-06 04:18] LABS: ALANINE AMINOTRANSFERASE 27 U/L (0-55); ALBUMIN 3.9 GM/DL (3.2-4.5); ALKALINE PHOSPHATASE 82 U/L (40-136); BILIRUBIN,TOTAL 1.3 MG/DL (0.1-1.0); BUN/CREATININE RATIO 15; CALCIUM 9.2 MG/DL (8.5-10.1); CARBON DIOXIDE 22 MMOL/L (21-32); CHLORIDE 108 MMOL/L (98-107); CHOLESTEROL 136 MG/DL (< 200); CREATININE SERUM 1.05 MG/DL (0.60-1.30); GFR ESTIMATED > 60; GLUCOSE 112 MG/DL (70-105); HDL CHOLESTEROL 41 MG/DL (40-60); POTASSIUM 4.1 MMOL/L (3.6-5.0); SODIUM 141 MMOL/L (135-145); TOTAL PROTEIN 6.5 GM/DL (6.4-8.2); TRIGLYCERIDES 113 MG/DL (<150); VLDL CHOLESTEROL 23 MG/DL (5-40)
[2018-09-06] MEDS: CATHETER FLUSH 10 ML SYR IV SCH (06:01)
[2018-09-06] MEDS ORDERED: OMEGA 3 (FISH OIL) 1000 MG CAP PO SCH (07:00)
--- NOTE | 2018-09-06 08:01 | Cardiology Progress Note ---
Subjective Date Seen by Provider: Sep 06, 2018 Time Seen by Provider: 08:00 Subjective/Events-last exam patient is laying down in bed, feeling better, denied any active chest pain. No palpitation. Blood pressure is better Review of Systems General: No Chills, No Night Sweats, No Fatigue, No Malaise, No Appetite, No Other HEENT: No Head Aches, No Visual Changes, No Eye Pain, No Ear Pain, No Dysphasia, No Sinus Congestion, No Post Nasal Drip, No Sore Throat, No Other Pulmonary: No Dyspnea, No Cough, No Pleuritic Chest Pain, No Other Cardiovascular: No: Chest Pain, Palpitations, Orthopnea, Paroxysmal Noc. Dyspnea, Edema, Lt Headedness, Other Objective-Cardiology Exam Last Set of Vital Signs Vital Signs 09/06/18 09/06/18 09/06/18 01:45 03:28 07:00 Temp 97.4 Pulse 71 Resp 16 B/P (MAP) 146/94 (111) Pulse Ox 97 O2 Delivery Room Air O2 Flow Rate 2.00 Capillary Refill : Less Than 3 Seconds I&O Intake and Output 09/06/18 00:00 Intake Total 450 ml Balance 450 ml Intake Oral 450 ml # Voids 1 # Bowel Movements 1 Daily Weight Change No General: Alert, Oriented X3, Cooperative HEENT: Atraumatic, PERRLA Neck: Supple, No JVD, No Thyromegaly Lungs: Clear to Auscultation, Normal Air Movement Heart: Regular Rate, Normal S1, Normal S2, No Murmurs Abdomen: Normal Bowel Sounds, Soft, No Tenderness, No Hepatosplenomegaly, No Masses Extremities: No Clubbing, No Cyanosis, No Edema, Normal Pulses, No Tenderness/Swelling Skin: No Rashes, No Breakdown, No Significant Lesion Neuro: Normal Gait, Normal Speech, Strength at 5/5 X4 Ext, Normal Tone, Sensation Intact Psych/Mental Status: Mental Status NL, Mood NL Results Lab Laboratory Tests 09/05/18 11:57 09/06/18 03:35 A/P-Cardiology Admission Diagnosis Hypertensive emergency Hypertensive encephalopathy Hyperlipidemia Diabetes mellitus Obesity Assessment/Plan Hypertensive emergency, blood pressure is better at this time. Feeling better. Okay for discharge and follow-up as an outpatient Hypertensive encephalopathy with numbness and tingling in his right side, CTA was nondiagnostic, blood pressure is better and he is feeling better. okay for discharge. Hyperlipidemia maintained on Crestor and fish oil. Monitor lipids Diabetes mellitus, followed and managed by primary care physician next Morbid obesity, BMI 51, had a long discussion with the patient about diet, we ight loss and exercise, educated about the importance of limiting salt intake, weight loss and avoiding carbohydrate. Clinical Quality Measures DVT/VTE Risk/Contraindication: Risk Factor Score Per Nursin RFS Level Per Nursing on Admit: 3=High Stroke: Date of last known well: Sep 05, 2018 Time of last known well: 11:30 Symptoms onset unknown: Yes GERMAN DANIEL MD Sep 06, 2018 08:01
[2018-09-06] MEDS ORDERED: NFNEB10T PO (08:03)
[2018-09-06] MEDS ORDERED: CLON0.1T PO (08:03)
[2018-09-06] MEDS ORDERED: ASPI-983 PO (08:03)
[2018-09-06] MEDS: cloNIDine 0.1 MG (CATAPRES) TAB PO SCH (08:19)
[2018-09-06] MEDS ORDERED: HYDROCHLOROTHIAZIDE 12.5 MG (HCTZ) CAP PO SCH (09:00)
[2018-09-06] MEDS ORDERED: lisINopril 20 MG (PRINIVIL) TABLET PO SCH (09:00)
[2018-09-06] MEDS ORDERED: ASPIRIN E.C. 81 MG (ECOTRIN) TAB PO SCH (09:00)
[2018-09-06] MEDS ORDERED: NEBIVOLOL 5 MG TAB (BYSTOLIC) PO SCH ×2 (09:00)
[2018-09-06] MEDS ORDERED: ROSUVASTATIN 20 MG (CRESTOR) TABLET PO SCH (09:00)
== END 2018-09-06 09:15 | disposition home or self-care (01) | DRG 305 ==
LOC: EDUNIT# 11:32 → ER 11:33 → ICU 15:10
PROVIDERS: ADMIT Internal Medicine; ATTEND Internal Medicine
DX: I16.1 Hypertensive emergency (principal); I67.4 Hypertensive encephalopathy; E66.01 Morbid (severe) obesity due to excess calories; Z68.43 Body mass index [BMI] 50.0-59.9, adult; E78.5 Hyperlipidemia, unspecified; E11.9 Type 2 diabetes mellitus without complications; Z79.84 Long term (current) use of oral hypoglycemic drugs
CPT/HCPCS: 36415; 70450; 70496; 70498; 71045; 80053; 80061; 80306; 81000; 84484; 85025; 85027; 85379; 85610; 85730; 93005; 93041; 93306; 96365; 96366; 96375; 96376

== ENCOUNTER → 2019-04-05 | Outpatient (CLI) | payer MEDICARE ==
[~2019-04-05] VITALS: Ht 172 cm; Wt 139.0 kg
[~2019-04-05] MED LIST changes: +ASPI-983 PO; +ASPI325T32 PO; +CATHETER FLUSH 10 ML SYR IV PRN; +CLON0.1T PO; +LISI1TAB8 PO; +MULT1TAB69 PO; +NEBI5TAB8 PO; +OMEG-160 PO; +OMEP40CA36 PO; +REGADENOSON 0.4 MG/5 ML SYR (LEXISCAN) IV ONE; +ROSU20TA2 PO
[2019-04-05 09:39] VITALS: BP 190/140
[2019-04-05 09:45] VITALS: BP 170/98
[2019-04-05 09:53] VITALS: BP 172/86
--- NOTE | 2019-04-05 21:05 | STRESS TEST ---
DATE OF SERVICE: 04/05/2019 LEXISCAN MYOVIEW STRESS TEST REPORT REFERRING PHYSICIAN: Dr. Geraldine Yan. Baseline heart rate is 58, baseline blood pressure 170/98. Baseline EKG is sinus rhythm with no ischemic changes. In summary, the patient was injected with 10.82 mCi of technetium-99 Myoview and the resting images were obtained. Then, the patient received 0.4 mg of Lexiscan followed by 29.6 mCi of technetium-99 Myoview. Throughout the test, there were no EKG changes. The resting and stress images were reviewed and compared in the short axis, horizontal long axis, and vertical long axis views. Review of the images showed diaphragmatic attenuation, there is fixed defect involving the apex and inferoapical segment with no significant reversibility. SSS is 10, SDS 1, TID value was not calculated due to the extracardiac attenuation. Gated images estimated ejection fraction 50% with no segmental wall motion. CONCLUSION: 1. The patient tolerated Lexiscan well. 2. Extracardiac attenuation with fixed defect involving the true apex and inferoapical segment. 3. Normal left ventricular size with normal contractility. Calculated ejection fraction 50%. 4. No TID value was calculated due to the extracardiac attenuation. Job ID: [id number] DocumentID: [id number] Dictated Date: 04/05/2019 15:43:43 [place] Date: 04/05/2019 21:03:51 Dictated By: GERMAN DANIEL MD
== END ==
LOC: CARD 03-01 07:51
PROVIDERS: ATTEND Physician Assistant
DX: I10 Essential (primary) hypertension (principal); R00.2 Palpitations; E66.01 Morbid (severe) obesity due to excess calories; G47.33 Obstructive sleep apnea (adult) (pediatric)
CPT/HCPCS: 78452; 93017

== ENCOUNTER 2020-02-19 10:26 | Outpatient (CLI) | payer MEDICARE, BC ==
[~2020-02-19 10:26] MED LIST changes: +ASPI-1238 PO; -ASPI-983 PO; -CATHETER FLUSH 10 ML SYR IV PRN; +CLN.1T PO; -CLON0.1T PO; +LISI1TAB46 PO; -LISI1TAB8 PO; +METF-865 PO; +MULT-567 PO; -MULT1TAB69 PO; +OMEP40CA27 PO; -OMEP40CA36 PO; -REGADENOSON 0.4 MG/5 ML SYR (LEXISCAN) IV ONE
== END 2020-02-19 11:16 | disposition home or self-care (01) ==
LOC: SLEEP 10:26
PROVIDERS: ATTEND Nurse Practitioner Family
DX: G47.33 Obstructive sleep apnea (adult) (pediatric) (principal)

== ENCOUNTER 2020-09-13 05:34 | Outpatient (RCR) | payer BC, MEDICARE ==
[~2020-09-13] VITALS: Ht 172.7 cm; Wt 147.0 kg
[~2020-09-13 05:34] MED LIST changes: +AMLO-251 PO
== END 2020-09-13 13:44 | disposition home or self-care (01) ==
LOC: PREOP 05:34
PROVIDERS: ATTEND Surgery
DX: Z01.812 Encounter for preprocedural laboratory examination (principal); Z12.11 Encounter for screening for malignant neoplasm of colon; Z20.822 Contact with and (suspected) exposure to COVID-19
CPT/HCPCS: 87635

== ENCOUNTER 2020-09-16 09:44 | Day surgery (SDC) | payer BC, MEDICARE ==
[~2020-09-16] VITALS: Ht 172 cm; Wt 147.0 kg
[~2020-09-16 09:44] MED LIST changes: -OMEP40CA27 PO; +OMEP40CA6 PO
[2020-09-16] MEDS ORDERED: LACTATED RINGERS 1,000 ML IV STA (09:54)
[2020-09-16 10:00] VITALS: BP 167/114
[2020-09-16] MEDS ORDERED: HURRICAINE EXT TUBE (BENZOCAINE) XX PRN (10:00)
[2020-09-16] MEDS ORDERED: MIDAZOLAM 2 MG/2 ML (VERSED) VIAL ONE (11:11)
[2020-09-16] MEDS ORDERED: PROPOFOL INJECTION 50 ML IV ONE (11:11)
[2020-09-16] MEDS ORDERED: ESMOLOL 100 MG/10 ML (BREVIBLOC) VIAL ONE (11:20)
[2020-09-16 11:40] VITALS: BP 189/79
--- NOTE | 2020-09-16 11:40 | Progress Note-Post Operative ---
Post-Operative Progess Note Surgeon (s)/Chief Of Staff Doctor (s) Surgeon ROSEMARY BARNEY DO Chief Of Staff Doctor: none Pre-Operative Diagnosis screening colon, hx of chewing tobacco Post-Operative Diagnosis Gastritis Esophageal ulcer int hemorrhoids Procedure & Operative Findings Date of Procedure 09/16/20 Procedure Performed/Findings After informed consent was obtained, the patient was brought to the endoscopy suite and placed in the bed in the left lateral decubitus position. He was administered IV sedation by the SAW TAILER, who then monitored him vitals the entire time, heart rate, blood pressure and pulse ox and the scope was inserted, started with the EGD, placed the scope down the mouth through the esophagus and into the stomach; noted some mild inflammation of the stomach, took a picture of this and then pushed into the duodenum. Duodenum looked looked good pulled back into the stomach, did a biopsy of the antrum and the gastric body. Pulled the scope into the GE junction, did a biopsy and then noted an esophageal ulcer. Took a picture of the ulcer and did a biopsy of it. Then pushed into the stomach and suctioned the air out and then pulled the scope up the esophagus and out the mouth. Switched camera, switched gloves, went down below, started the colonoscopy. Pushed all the way into about 140 cm to get all the way to cecum, took a picture of the appendiceal orifice, noted the ileocecal valve and then slowly withdrew the scope, insufflating to look circumferentially at the [place] starting in the cecum, up the ascending colon to the hepatic flexure, then down the transverse colon to the splenic flexure, into the descending colon, down into the sigmoid and finally into the rectum, retroflexed in the rectal vault, saw some minimal internal hemorrhoids and took a picture of this. The patient tolerated the procedure and he recovered in the endoscopy suite. Anesthesia Type IV sedation by Anesthesia Estimated Blood Loss Estimated blood loss (mL): scant Specimens/Packing Specimens Removed antral bx body of stomach bx GE jxn bx esophageal bx ROSEMARY BARNEY DO Sep 16, 2020 11:40
--- NOTE | 2020-09-16 11:40 | Endoscopy Discharge Instruct ---
Endo Procedure/Findings Findings 1.: Gastritis 2.: Other Findings (Esophageal ulcer) 3.: Internal Hemorrhoids Discharge Instructions - Activity: You might feel a little sleepy until tomorrow. This is due to the medicine you received to relax you. Until tomorrow, you should: NOT drive a car, operate machinery or power tools. NOT drink any alcoholic beverages. NOT make any important decisions or sign importortant papers. Do not return to work until tomorrow, unless otherwise instructed. Resume previous activities tomorrow. Diet: Start by taking liquids. If you tolerate liquids, advance to solid food. 1.: Colonscopy in 10 years, EGD in 6-8 weeks Notify Physician - If you experience excessive bleeding, unusual abdominal pain, fever, or chest pain, contact your doctor immediately. ROSEMARY BARNEY DO Sep 16, 2020 11:40
[2020-09-16 11:43] VITALS: BP 173/95
[2020-09-16 11:50] VITALS: BP 173/95
--- NOTE | 2020-09-16 12:18 | Anesthesia-General Post-Op ---
MAC Patient Condition Mental Status/LOC: Same as Preop Cardiovascular: Satisfactory Nausea/Vomiting: Absent Respiratory: Satisfactory Pain: Controlled Complications: Absent Post Op Complications Complications None Follow Up Care/Instructions Patient Instructions None needed. Anesthesiology Discharge Order Discharge Order Patient was seen after the procedure and he was doing well, no complaints, stable vital signs, no apparent adverse anesthesia problems. RAMANDEEP RAMIREZ 21, 2021 12:18
[2020-09-16 12:20] VITALS: BP 152/120
[2020-09-16 12:30] VITALS: BP 152/120
== END 2020-09-16 12:33 | disposition home or self-care (01) ==
LOC: ENDO 09:44
PROVIDERS: ATTEND Surgery
DX: Z12.11 Encounter for screening for malignant neoplasm of colon (principal); K29.70 Gastritis, unspecified, without bleeding; K64.8 Other hemorrhoids; K22.10 Ulcer of esophagus without bleeding; I10 Essential (primary) hypertension; G47.33 Obstructive sleep apnea (adult) (pediatric); E11.9 Type 2 diabetes mellitus without complications; E78.00 Pure hypercholesterolemia, unspecified; E66.01 Morbid (severe) obesity due to excess calories; Z68.42 Body mass index [BMI] 45.0-49.9, adult; Z79.84 Long term (current) use of oral hypoglycemic drugs; Z87.891 Personal history of nicotine dependence
CPT/HCPCS: 82947; 88305

== ENCOUNTER → 2020-10-30 | Outpatient (CLI) | payer MEDICARE ==
[~2020-10-30] MED LIST changes: +CATHETER FLUSH 10 ML SYR IV PRN; +HOLD METFORMIN - RECEIVED CONTRAST 20 ML VIAL IV SCH; +IOHEXOL 350 MG/ML 100 ML (OMNIPAQUE 350) VIAL IV ONE; +NS 100 ML (IVPB) BAG IV ONE
[2020-10-30 07:50] LABS: CREATININE SERUM 0.88 MG/DL (0.60-1.30)
--- NOTE | 2020-10-30 09:08 | Diagnostic Imaging Report ---
EXAMINATION: CT abdomen and pelvis with intravenous contrast. TECHNIQUE: Multiple contiguous axial images were obtained through the abdomen and pelvis after the uneventful administration of intravenous contrast. All CT scans use one or more of the following dose optimizing techniques: automated exposure control, MA and/or KvP adjustment based on patient size and exam type or iterative reconstruction. HISTORY: LLQ PAIN COMPARISON: CT abdomen and pelvis 10/24/2012 FINDINGS: Lung bases: The lung bases are clear. Solid organs: The liver is normal without focal lesion. The gallbladder is normal. There is no biliary ductal dilation. Pancreas is normal. Spleen is normal. Adrenal glands are normal. There is a 1.7 cm nonobstructing left renal calculus. There is prominent stranding seen near the left renal pelvis. The right kidney is unremarkable. No hydronephrosis. Bowel: The stomach and small bowel are normal without obstruction. There is scattered colonic diverticulosis. The appendix is normal. Peritoneum: There is no intraperitoneal free fluid or free air. No suspicious lymphadenopathy. Vasculature: Calcification of the aorta without aneurysm. Musculoskeletal: Degenerative changes of the spine without suspicious osseous lesion or compression fracture. Pelvis: The prostate gland is normal. The urinary bladder is normal. IMPRESSION: 1. A 1.7 cm nonobstructing left renal calculus. There is significant fat stranding along the proximal ureter and left renal pelvis. This could be secondary to inflammation but infectious process would be within the differential. Recommend correlation with urinalysis. 2. Colonic diverticulosis without findings diverticulitis. Dictated by: Dictated on workstation # [id number]
== END ==
LOC: RAD 07:19
PROVIDERS: ATTEND Surgery
DX: N20.0 Calculus of kidney (principal); K57.30 Diverticulosis of large intestine without perforation or abscess without bleeding
CPT/HCPCS: 36415; 74177; 82565; 84520

== ENCOUNTER 2021-02-28 05:33 | Outpatient (RCR) | payer MEDICARE ==
[~2021-02-28] VITALS: Ht 173 cm; Wt 127.3 kg
[~2021-02-28 05:33] MED LIST changes: -CATHETER FLUSH 10 ML SYR IV PRN; +CHOL2400 MC; -HOLD METFORMIN - RECEIVED CONTRAST 20 ML VIAL IV SCH; -IOHEXOL 350 MG/ML 100 ML (OMNIPAQUE 350) VIAL IV ONE; -NS 100 ML (IVPB) BAG IV ONE; +PREG75CA75 PO
== END 2021-02-28 12:06 | disposition home or self-care (01) ==
LOC: PREOP 05:33
PROVIDERS: ATTEND Surgery
DX: Z01.812 Encounter for preprocedural laboratory examination (principal); K22.10 Ulcer of esophagus without bleeding; Z20.822 Contact with and (suspected) exposure to COVID-19
CPT/HCPCS: 87635

== ENCOUNTER → 2021-10-24 | Outpatient (CLI) | payer MEDICARE ==
--- NOTE | 2021-10-24 13:09 | Diagnostic Imaging Report ---
INDICATION: Epigastric pain. TECHNIQUE: Ultrasound of the gallbladder and right upper quadrant was performed in the routine fashion. FINDINGS: The liver shows diffuse increased echogenicity compatible with fatty infiltration. No focal liver lesion is seen. The gallbladder appears unremarkable with no stones or wall thickening. Common duct could not be visualized. Pancreas was not seen due to overlying gas. IVC was not well seen due to overlying gas. Aorta was non-aneurysmal. Right kidney measured 11.8 cm in length. There is no ascites. Portal vein is also not well seen due to overlying bowel gas. IMPRESSION: Diffuse fatty infiltration of the liver. No gallbladder pathology. Common bile duct was not well seen due to body habitus and overlying bowel gas. There was no ascites. Dictated by: Dictated on workstation # [id number]
== END ==
LOC: RAD 08:30
PROVIDERS: ATTEND Surgery
DX: K76.0 Fatty (change of) liver, not elsewhere classified (principal)
CPT/HCPCS: 76705

== ENCOUNTER 2021-10-29 06:18 | Outpatient (RCR) | payer MEDICARE ==
[~2021-10-29] VITALS: Ht 172.7 cm; Wt 135.6 kg
== END 2021-11-06 09:57 | disposition home or self-care (01) ==
LOC: PREOP 06:18
PROVIDERS: ATTEND Surgery
DX: Z01.818 Encounter for other preprocedural examination (principal)

== ENCOUNTER → 2021-10-30 | Outpatient (CLI) | payer MEDICARE ==
[~2021-10-30] MED LIST changes: +CATHETER FLUSH 10 ML SYR IVP PRN
--- NOTE | 2021-10-30 15:06 | Diagnostic Imaging Report ---
INDICATION: Epigastric pain. Patient was administered 5.1 mCi technetium 99m Choletec intravenously and imaging over the abdomen was performed. At 60 minutes patient ingested Ensure and a gallbladder ejection fraction was calculated. There is homogeneous uptake of activity by the liver. There is prompt excretion of activity into the common duct and gallbladder. Normal passage of activity into the small bowel is noted. Gallbladder ejection fraction is normal at 85%. IMPRESSION: Normal HIDA scan and gallbladder ejection fraction. Dictated by: Dictated on workstation # [id number]
== END ==
LOC: CARD 12:02
PROVIDERS: ATTEND Surgery
DX: R10.13 Epigastric pain (principal)
CPT/HCPCS: 78227; A9537